=== PATIENT | female | born 1980 | race Caucasian/White ===

== ENCOUNTER 2016-09-19 10:02 | Day surgery (SDC) | payer OTHER ==
[2016-09-19] MEDS ORDERED: CEFAZOLIN 2GM PREMIX 0 ML IV ONE (10:06)
[2016-09-19] MEDS ORDERED: IV RINGERS,LACTATED 1000ML 1,000 ML IV SCH (10:17)
[2016-09-19] MEDS ORDERED: PROCHLORPERAZINE 10 MG/2 ML VIAL. IV PRN (10:30)
[2016-09-19] MEDS ORDERED: HYDROMORPHONE 2 MG/ML VIAL. IV PRN (10:30)
[2016-09-19] MEDS ORDERED: ONDANSETRON PF 4 MG/2 ML VIAL. IV PRN (10:30)
[2016-09-19] MEDS ORDERED: LIDOCAINE 1% 1 ML SYRINGE. ID PRN (10:30)
[2016-09-19] MEDS ORDERED: FENTANYL PF 100 MCG/2 ML VIAL. IV PRN (10:30)
[2016-09-19] MEDS ORDERED: MORPHINE SULFATE 2 MG/ML DISP.SYRIN. IV PRN (10:30)
[2016-09-19] MEDS ORDERED: FAMOTIDINE 20 MG/2 ML VIAL ONE (10:37)
[2016-09-19] MEDS ORDERED: PROPOFOL 20 ML IV ONE (10:37)
[2016-09-19] MEDS ORDERED: ONDANSETRON PF 4 MG/2 ML VIAL. ONE (10:37)
[2016-09-19] MEDS ORDERED: LIDOCAINE 2% 100 MG/5 ML DISP.SYRIN. ONE (10:37)
[2016-09-19] MEDS ORDERED: DEXAMETHASONE SOD PHOS 20 MG/5 ML VIAL. ONE (10:37)
[2016-09-19] MEDS ORDERED: ROCURONIUM 50 MG/5 ML VIAL. ONE (10:38)
[2016-09-19] MEDS ORDERED: FENTANYL PF 100 MCG/2 ML VIAL. ONE ×2 (10:38→11:13)
[2016-09-19] MEDS ORDERED: RIZA10TA PO (10:42)
[2016-09-19] MEDS ORDERED: SCOPOLAMINE 1.5MG PATCH. TD ONE (10:50)
[2016-09-19] MEDS ORDERED: CEFOXITIN SODIUM 2 GM in IV NORMAL SALINE 100ML 100 ML IV ONE (11:00)
[2016-09-19] MEDS ORDERED: BUPIVAC MPF-EPI 0.5%-1:200000 30 ML VIAL. ONE (11:09)
[2016-09-19] MEDS ORDERED: DESFLURANE 16 TO 30 MINUTES. IH ONE (11:23)
[2016-09-19] MEDS ORDERED: AMOX1TAB61 PO (11:39)
[2016-09-19] MEDS ORDERED: OXYC-323 PO (11:39)
--- NOTE | 2016-09-19 11:40 | PDOC ---
BRIEF OPERATIVE NOTE Pre-Op Diagnosis perirectal abscess i and d of intersphincteric perirectal abscess k blake gen ebl 5 ivf 500 maryuri well to rr stable. LUCY MORROW MD Sep 19, 2016 11:40
[2016-09-19] MEDS: FENTANYL PF 100 MCG/2 ML VIAL. IV PRN ×2 (11:43→11:53)
[2016-09-19 11:45] LABS: NEG OBC UR NEG; POS OBC UR POS
[2016-09-19] MEDS ORDERED: OXYCODONE/APAP 5/325 TABLET. PO ONE (12:15)
[2016-09-19 12:53] VITALS: BP 118/57
--- NOTE | 2016-09-21 00:56 | OP ---
DATE OF SURGERY: 09/19/2016 PREOPERATIVE DIAGNOSIS: Perirectal abscess. POSTOPERATIVE DIAGNOSIS: Intersphincteric perirectal abscess. PROCEDURE: 1. Exam under anesthesia. 2. Incision and drainage of intersphincteric perirectal abscess. SURGEON: Va Morrow M.D. ANESTHESIA: General. ESTIMATED BLOOD LOSS: 5 mL INTRAVENOUS FLUIDS: 500 mL ____. INDICATIONS: The patient is a 36-year-old female who presents with increasing perirectal pain since last week ____ diagnosed with a perirectal abscess, here for drainage. DESCRIPTION OF PROCEDURE: After informed consent was obtained, the patient was taken to the operating room and placed in the supine position. After adequate induction of general anesthesia, she was prepped and draped in usual sterile fashion. She had been placed in modified lithotomy position. The patient has firmness anteriorly on the left perineum and perirectal area. This area was palpated to identify a fluctuant area. In doing so, ____ was palpated. She had purulent material coming from her anus. A speculum was placed within the anus and the firmness in the subcutaneous tissue was palpated, which demonstrated purulent material draining through a gland within the anal canal. This area then was opened with cautery and the abscess cavity explored. It was able to be fully drained through the anal canal and thereby avoiding any incision on the skin of the perianal and gluteal tissue. This abscess was intersphincteric. The cavity was hemostatic. It was then packed with dry gauze and the surrounding tissues were injected with local anesthetic. She was then transferred in stable condition to the recovery room. VA MORROW MD DR: KETURAH/kostas JOB#: [id number] / [id number]
== END 2016-09-19 13:11 | disposition home or self-care (01) ==
LOC: SURG 10:02
PROVIDERS: ATTEND Surgery
DX: K61.1 Rectal abscess (principal); E66.9 Obesity, unspecified
CPT/HCPCS: 46040; 81025; J0694; J1100; J2405; J2704; J3010; J3490; S0028; J0690; J2270